=== PATIENT | male | born 1975 | race Caucasian/White ===

== ENCOUNTER 2020-06-16 14:24 | Outpatient (REF) | payer OTHER, SELFPAY | END 2020-06-16 14:25 | disposition home or self-care (01) | LOC: HO.HMGCLDS 14:24 | PROVIDERS: Visit Provider Internal Medicine | DX: Z20.828 Contact with and (suspected) exposure to other viral communicable diseases (principal) | CPT/HCPCS: C9803; U0003 ==

== ENCOUNTER 2022-05-15 09:22 | Outpatient (REF) | payer OTHER, SELFPAY ==
--- NOTE | ~2022-05-15 | US_ITS ---
EXAMINATION: US ABDOMEN COMPLETE CLINICAL INFORMATION: Elevated LFTs. COMPARISON: None TECHNIQUE: Real-time imaging of the abdominal viscera. FINDINGS: PANCREAS: Visualized portions unremarkable. ABDOMINAL AORTA: Visualized portions unremarkable. INFERIOR VENA CAVA: Visualized portions unremarkable. LIVER: Diffuse increased echotexture without focal abnormality. GALLBLADDER: Unremarkable. COMMON BILE DUCT: Normal in caliber measuring 0.3 cm in diameter. RIGHT KIDNEY: 13.1 cm. An upper pole anechoic cyst measures 1.1 cm. An adjacent echogenic focus measures 0.5 cm. No hydronephrosis. Color Doppler showed no abnormal vascular flow. LEFT KIDNEY: 12.8 cm. An interpolar anechoic cyst measures 0.7 cm. No hydronephrosis. Color Doppler showed no abnormal vascular. SPLEEN: 12.8 cm for an unremarkable. FREE FLUID: None. US/US abdomen complete IMPRESSION: 1. Small renal cysts bilaterally demonstrate benign features, follow-up. Nonobstructing right upper pole intrarenal calculus. 2. Hepatic steatosis.
== END 2022-05-15 09:23 | disposition home or self-care (01) ==
LOC: HO.US 09:22
PROVIDERS: Visit Provider Internal Medicine
DX: R10.11 Right upper quadrant pain (principal); R79.89 Other specified abnormal findings of blood chemistry
CPT/HCPCS: 76700

== ENCOUNTER → 2022-11-04 15:49 | Outpatient (BNVA) | payer OTHER, SELFPAY | PROVIDERS: PCP Internal Medicine; Visit Provider Nurse Practitioner Family | DX: Z13.89 Encounter for screening for other disorder (principal) ==

== ENCOUNTER 2023-01-17 09:35 | Day surgery (SDC) | payer OTHER, SELFPAY ==
--- NOTE | 2023-01-16 12:17 | HO.ANESPROP2 ---
Documented by User: Gay Pettit NP 01/16/23 12:18 HPI - Anesthesia Eval Consult details Narrative: 47yo M for Colonoscopy PMFSH Active Problems Active Problems: All Active Problems (Updated 08/26/22 @ 18:26 by Young Hugo MD) Colon cancer screening (Acute) Fatty liver (Acute) Renal calculus, right (Acute) Obesity (BMI 30-39.9) (Acute) Past Medical History Medical History Obesity (BMI 30-39.9) Renal calculus, right Family History Family History Father Heart disease Prostate cancer Paternal Uncle No problems noted. Maternal Uncle Substance abuse Surgical History Surgical History H/O: vasectomy Social History Social History Alcohol intake: current Patient Tobacco Use Status: Never used Tobacco Years Smoked: stopped 2008 Use of substances other than those prescribed or required for medical reasons: Yes Substance Use Type Other:: 2-3 x week Are you DNR?: No Advance Directives: No Advance Directives Information Provided: Yes Cognitive needs: No Hearing needs: No Vision needs: No Meds Allergies Allergy/AdvReac Type Severity Reaction Status Date / Time Penicillins [PENICILLINS] Allergy Unknown UNK Verified 01/14/23 15:35 Home Medications Medication Instructions Recorded Confirmed Last Taken Type No Known Home Meds 01/17/23 01/17/23 Unknown History Exam Exam Date and Time: January 16, 2023 121 Assessment and Plan Assessment Anesthesia Assessment: Chart Reviewed Documented by User: Joel Stein MD 01/17/23 11:45 PMFSH Past Medical History Medical History Obesity (BMI 30-39.9) Renal calculus, right Narrative: likely JUANITA. Family History Family History Father Heart disease Prostate cancer Paternal Uncle No problems noted. Maternal Uncle Substance abuse Family history of problems with anesthesia: No Surgical History Surgical History H/O: vasectomy History of Problems with Anesthesia: No Social History Social History Alcohol intake: current Patient Tobacco Use Status: Never used Tobacco Years Smoked: stopped 2008 Use of substances other than those prescribed or required for medical reasons: Yes Substance Use Type Other:: 2-3 x week Are you DNR?: No Advance Directives: No Advance Directives Information Provided: Yes Cognitive needs: No Hearing needs: No Vision needs: No Meds Allergies Allergy/AdvReac Type Severity Reaction Status Date / Time Penicillins [PENICILLINS] Allergy Unknown UNK Verified 01/14/23 15:35 Home Medications Medication Instructions Recorded Confirmed Last Taken Type No Known Home Meds 01/17/23 01/17/23 Unknown History Exam Airway Mallampati Class: II TM Dist: >3cm Neck ROM: Full Loose/Missing/Broken Teeth: No Heart: ok Lungs: ok Assessment and Plan Assessment Anesthesia Assessment: Anesthesia Plan Discussed Final Anesthetic Review Family History of Problems with Anesthesia: No History of Problems with Anesthesia: No NPO: Yes ASA Class: III Final Preanesthetic Review: No Changes in Pt Med Stat, Meds/Allgs Chart Reviewed, Consent Obtained/Reviewed and Anes Risks/Benef Reviewed Patient Risk: Intermediate Procedure Risk: Low Anesthetic Plan Anesthetic Plan: MAC: and Agree w/ Assess. and Plan Disposition: Standard PACU
[2023-01-17 09:50] VITALS: BMI 33.7
[2023-01-17 09:55] VITALS: BP 148/80; PULSE 51; RESP 18; TEMP 36.1; O2SAT 98
[2023-01-17] MEDS: Lactated Ringers 1,000 ML 100 ML IVCONT (10:14)
--- NOTE | 2023-01-17 11:22 | MHC.SHP ---
Pre-Procedural Eval Section A Date of Service: 01/17/23 The patient is an INPATIENT: No The History & Physical has been completed within 30 days and I have reviewed it.: No Section B Chief Complaint: screening Relevant Family History (Specify if Yes): No Relevant Social History: None Present Medications: see Short Stay Collaborative assessment Medical History: Significant History (Obesity (BMI 30-39.9) Renal calculus, right) History of Previous Operations: Relevant previous surgery/procedure and date(s) (hx of vasectomy) Allergies: Allergies Allergy/AdvReac Type Severity Reaction Status Date / Time Penicillins [PENICILLINS] Allergy Unknown UNK Verified 01/14/23 15:35 Review of Systems Sugical H&P ROS: Negative: Constitution, Cardiovascular, Respiratory and Gastrointestinal Exam Surgical H&P Exam: Normal: Heart, Normal: Lungs, Normal: Extremities and Normal: Abdomen Plan Diagnosis/Plan: Unchanged I have reviewed the history and physical and performed a pertinent physical examination on my patient. No changes have occurred unless specified. Time Spent With Patient Time: Total time managing care of this patient today ____ minutes.
--- NOTE | 2023-01-17 11:27 | P.OP_ITS ---
Operative Note Operative Note Date of Service: 01/17/23 Narrative: COLONOSCOPY TILL CECUM WITH SNARE POLYPECTOMY Pre-op diagnosis: Colon cancer screening Post-op diagnosis: Colon polyp, diverticulosis, hemorrhoids Endoscopist:? Fiona Echevarria MD Anesthesia:?MAC Consent: Indications for the procedure and potential complications of bleeding, perforation, reaction to medications and missed diagnosis were discussed with the patient and informed consent was obtained. Instrument: Olympus PCF H 190 L variable stiffness pediatric colonoscope Monitoring: Vital signs and clinical assessment, intermittent blood pressure monitoring, continuous EKG monitoring, Pulse oximetry and Carbon Dioxide monitoring were done throughout the procedure. Please see anesthesia flowsheet. Colon withdrawl time was 17 minutes. Procedure: The patient was placed in the left lateral decubitis position and pre-procedure medications were administered. After a digital rectal examination of the ano-rectum, the video colonoscope was inserted into the rectum and advanced through the colon to the cecum. The colonoscope was slowly withdrawn in a retrograde panoramic fashion and the colon mucosa was carefully examined including a retroflexed view of the rectum. Findings and interventions are described below. Procedure Difficulty: Without difficulty Findings: Terminal Ileum: Not evaluated Cecum: Normal Ascending Colon: Normal Transverse Colon: A 7-8 mm sessile polyp - removed with a cold snare. Descending Colon: Moderate diverticulosis Sigmoid Colon: Moderate diverticulosis Rectum: Normal Ano-rectum: Moderate internal hemorrhoids Colon preparation: Good Impression and Post Procedure Diagnosis: Colonoscopy Findings: One small polyps removed Moderate diverticulosis seen in the left colon Moderate hemorrhoids on retroflexed exam. Plan: Await pathology results Patient has an appointment on 01/31/23 in the GI [facility] with Heidy Miller FNP- [facility]. Repeat Colonoscopy interval based on path results - in 5 years if polyps are adenomatous and 10 years if polyps are hyperplastic. Above findings were reviewed with the patient and colon polyps and diverticulosis handouts were given in the discharge area
[2023-01-17 12:09] VITALS: BP 129/76; PULSE 68; RESP 16; TEMP 36.7; O2SAT 96
[2023-01-17 12:24] VITALS: BP 123/81; PULSE 52; RESP 16; TEMP 36.2; O2SAT 96
== END 2023-01-17 12:53 | disposition home or self-care (01) ==
PROVIDERS: PCP Internal Medicine; Visit Provider Internal Medicine Gastroenterology
PROC: 0DJD8ZZ Inspection of Lower Intestinal Tract, Via Natural or Artificial Opening Endoscopic (ICD-10-PCS; CPT 45378; principal; 2023-01-17 11:10)
DX: Z12.11 Encounter for screening for malignant neoplasm of colon (principal); D12.3 Benign neoplasm of transverse colon; K57.30 Diverticulosis of large intestine without perforation or abscess without bleeding; K64.8 Other hemorrhoids; N20.0 Calculus of kidney; E66.9 Obesity, unspecified; Z68.35 Body mass index [BMI] 35.0-35.9, adult; Z80.42 Family history of malignant neoplasm of prostate; Z98.52 Vasectomy status; Z88.0 Allergy status to penicillin
CPT/HCPCS: 45385; 88305; J3010

== ENCOUNTER 2023-02-10 14:50 | Outpatient (AMB) | payer OTHER, SELFPAY ==
[2023-02-10 14:58] VITALS: BP 152/93; PULSE 73; BMI 35.6
--- NOTE | 2023-02-10 14:58 | MHC.OFFVIS ---
Intake Vital Signs 02/10/23 14:58 Height 5 ft 6 in Weight 220 lb 7.396 oz BMI 35.6 BP 152/93 H Blood Pressure Location Lt brachial Position Sitting Pulse 73 Intake Visit Reasons: S/p colon-Wale Intake Note: Lee presents in office as a est.patient for a post-op for colon pt got it done 01.17.23 PT CC: pt reports having no concerns pt denies any other GI Issues Try Out Person Required: No Accompanied by: Self / Same As Patient Allergies Penicillins [PENICILLINS] Allergy (Unknown, Verified 02/10/23 14:58) UNK HPI S/p colon-Wale HPI Details LAST VISIT Colon cancer screening Patient denies any GI, cardiac or respiratory symptoms.? Denies any issues with anesthesia in the past.? Denies any history of sleep apnea.? No history infectious diseases in the past or present.? Not on any anticoagulation therapy.? No family or personal history of colon cancer or polyps.? Patient denies melena, hematochezia, unintentional weight loss or ribbon like stools.? Discussed at length the pre-procedure,? prep, diet & medications as well as what to expect prior, during and after the procedure.?? Stressed the importance of good bowel prep. ?Recommended the use of Vaseline or Calmoseptine OTC & baby wipes with bowel movements to promote comfort.? ?Patient verbalizes understanding and agrees to plan of care.? He was given the opportunity to ask questions and all questions answered.? We will see him after the procedure.? COLONOSCOPY Findings: Terminal Ileum: Not evaluated Cecum:? Normal Ascending Colon:? Normal Transverse Colon:? A 7-8 mm sessile polyp - removed with a cold snare. Descending Colon:? Moderate diverticulosis Sigmoid Colon:? Moderate diverticulosis Rectum:? Normal Ano-rectum:? Moderate internal hemorrhoids Colon preparation:? Good? Impression and Post Procedure Diagnosis: Colonoscopy Findings: One small polyps removed Moderate diverticulosis seen in the left colon Moderate hemorrhoids on retroflexed exam. Plan: Await pathology results Patient has an appointment on 01/31/23 in the GI Clinic with Heidy Miller FNP-BC. Repeat Colonoscopy interval based on path results - in 5 years if polyps are adenomatous and 10 years if polyps are hyperplastic. PATHOLOGY RESULTS: Diagnosis Colon, transverse, polyp:? Tubular adenoma; negative for high-grade dysplasia and carcinoma. TODAY'S VISIT: Patient is here today for follow-up and to discuss colonoscopy results. Patient denies any ill effects from the prep, anesthesia or procedure itself. Tubular adenoma found in transverse colon and patient was recommended to return for colorectal screening in 5 years. Patient denies any melena, hematochezia, unintentional weight loss or ribbon like stools. Moderate internal hemorrhoids as well as moderate diverticulosis seen in left colon. Patient denies any abdominal pain or discomfort. Denies any rectal bleed or pain. Patient denies any GI concerning symptoms. [facility] Medical History (Updated 03/05/23 @ 19:16 by Heidy Miller [facility]) Diverticulosis Obesity (BMI 30-39.9) Renal calculus, right Surgical History H/O: vasectomy Hx of colonoscopy Family History Father Heart disease Prostate cancer Paternal Uncle No problems noted. Maternal Uncle Substance abuse Social History Alcohol intake: current Patient Tobacco Use Status: Never used Tobacco Years Smoked: stopped 2008 Cognitive needs: No Hearing needs: No Vision needs: No Review of Systems Const Denies weight gain and Denies weight loss ENT Reports no additional complaints, Denies dysphagia and Denies odynophagia Card Reports no additional complaints Resp Reports no additional complaints GI Denies abdominal pain, Denies belching, Denies melena, Denies bloating, Denies change in bowel habits, Denies dysphagia, Denies excessive flatus, Denies dyspepsia, Denies heartburn, Denies diarrhea, Denies loose stools, Denies nausea, Denies odynophagia and Denies vomiting Reports no additional complaints Musc Reports no additional complaints Neuro Reports no additional complaints Psych Reports no additional complaints Endo Reports no additional complaints Physical Exam Vital Signs: Last Vital Signs Pulse 73 02/10/23 14:58 BP 152/93 H 02/10/23 14:58 BMI result Body Mass Index 35.6 Const General: healthy appearing, no acute distress and well developed Nutritional Appearance: obese Orientation/consciousness: patient oriented x3 HEENT Head: Yes normal to inspection, Yes normocephalic and Yes atraumatic Face and sinus: Yes normal facial exam Mouth: Normal oral and palatal mucosa present Throat: Yes posterior oropharynx normal, Yes tonsils normal and Yes uvula midline Eyes General: appearance normal, both eyes and all related structures Neck Neck: Yes normal visual inspection, Yes full ROM and Yes trachea midline Thyroid: Thyroid normal Resp Effort & Inspection: normal respiratory effort, able to speak in complete sentences, no tracheal deviation and symmetric chest movement Auscultation: clear to auscultation bilaterally Cardio Rate: regular rate Heart sounds: S1 normal heart sound present and S2 normal heart sound present GI Inspection: Yes normal to inspection, No distended and Yes obesity Palpation (GI): Soft to palpation, not firm, nontender and No hepatosplenomegaly present Auscultation: normal bowel sounds General: Yes no CVA tenderness Back/Spine/Pelvis Back: no CVA tenderness Skin General skin exam: elasticity normal, turgor normal and dry skin Neuro General: patient oriented x3 Psych Appearance: grossly normal Mental Status: mental status grossly normal Speech and movement: Normal speech and movement present Affect: normal affect Assessment & Plan Assessment & Plan (1) Tubular adenoma: Code(s): D36.9 - Benign neoplasm, unspecified site Plan: 1 tubular adenoma found in the transverse colon. Patient will return for colorectal screening in 5 years, sooner if clinically necessary. (2) Status post colonoscopy: Code(s): Z98.890 - Other specified postprocedural states (3) Diverticulosis: Code(s): K57.90 - Diverticulosis of intestine, part unspecified, without perforation or abscess without bleeding Plan: Moderate diverticulosis to left colon. Patient was encouraged to drink plenty fluids, take probiotic and increase fiber intake. List of food high in fiber given to patient. Information about diverticulosis and what type of food he should be consuming given to patient (4) Internal hemorrhoids without complication: Code(s): K64.8 - Other hemorrhoids Plan: Internal hemorrhoids without complication found. Patient denies any rectal pain or discomfort. Patient can increase fiber intake. He will call us if he will have any issues. He will follow-up with us on as-needed basis. He is agreeable to this plan and verbalizes understanding of instructions. He was given the opportunity to ask questions and all questions answered. Thank you for allowing me to participate in his care Coding Level of Care Code Est Pt Level 4 (47891) Diagnoses Tubular adenoma D36.9 Status post colonoscopy Z98.890 Diverticulosis K57.90 Internal hemorrhoids without complication K64.8 Time Spent (min) 35 Comment 20 minutes spent with patient and additional 15 minutes spent reviewing his records
== END 2023-02-10 15:21 | disposition home or self-care (01) ==
PROVIDERS: PCP Internal Medicine; Visit Provider Nurse Practitioner Family
DX: D36.9 Benign neoplasm, unspecified site (principal); Z98.890 Other specified postprocedural states; K57.90 Diverticulosis of intestine, part unspecified, without perforation or abscess without bleeding; K64.8 Other hemorrhoids
CPT/HCPCS: 99214

== ENCOUNTER → 2023-02-10 14:50 | Outpatient (BNVA) | payer OTHER, SELFPAY | PROVIDERS: PCP Internal Medicine; Visit Provider Nurse Practitioner Family ==

== ENCOUNTER 2025-01-10 15:39 | Outpatient (AMB) | payer OTHER, SELFPAY ==
[2025-01-10 15:45] VITALS: BP 148/98; PULSE 72; TEMP 36; O2SAT 97; BMI 35.7
--- NOTE | 2025-01-10 15:45 | MHC.PC.OV ---
Vital Signs 01/10/25 15:45 Height 5 ft 6 in Weight 221 lb 4 oz BMI 35.7 BP 148/98 H Blood Pressure Location Lt brachial Position Sitting Pulse 72 Pulse Source Pulse Oximeter Temp 96.8 F Temp Source Temporal Artery Scan Pulse Oximetry (%) 97 Oxygen Delivery Method Room Air Intake Visit Reasons: elevated BP and chalazion Compressor Battery Pellets Required: No Accompanied by: Self / Same As Patient Allergies Penicillins [PENICILLINS] Allergy (Unknown, Verified 01/10/25 15:50) UNK Medication List - Last Reviewed 01/10/25 by RAJAN Louie No Known Home Meds Tobacco use date assessed: 01/10/25 Dental Screening Dental Screen Date: 01/10/25 Did you have a dental visit in the last 12 months?: Yes Did you have a dental problem in the last 6 months where you did not have access to dental care?: No Was dental information given to patient?: Patient has dentist HPI elevated BP and chalazion HPI Details The patient is a 49-year-old male presenting with concerns about elevated blood pressure readings. He reports that his blood pressure readings at home have been elevated, reaching into the 140s and 150s systolic, despite feeling asymptomatic. The patient has a family history of hypertension, as his mother is affected by the condition. The patient uses a home blood pressure monitor, which he purchased to monitor his 's health, and has noted elevated readings during casual checks. He acknowledges a high caffeine intake, consuming up to 44 ounces of coffee daily, which may contribute to his elevated blood pressure. The patient is generally healthy, does not frequently visit doctors, and prefers to manage minor ailments without medication. The patient also reports a chalazion, which he has been managing with warm compresses, leading to improvement. He describes the chalazion as initially presenting as a sty, which evolved into a chalazion over a month, and has been using warm compresses effectively for treatment. [facility] Medical History (Updated 01/10/25 @ 15:59 by Rudy Quevedo PA-C) Diverticulosis Obesity (BMI 30-39.9) Renal calculus, right Surgical History Hx of colonoscopy H/O: vasectomy Family History Father Heart disease Prostate cancer Paternal Uncle No problems noted. Maternal Uncle Substance abuse Social History Housing: House Alcohol intake: current Patient Tobacco Use Status: Never used Tobacco Years Smoked: stopped 2008 e-Cigarette/Vaping Use: Never Used service: No Current occupational status: employed Cognitive needs: No Hearing needs: No Vision needs: No Questionnaire PHQ-9 Over the last 2 weeks, how often have you been bothered by any of the following problems? 1. Little interest or pleasure in doing things: not at all 2. Feeling down, depressed, or hopeless: not at all 3. Trouble falling or staying asleep, or sleeping too much: not at all 4. Feeling tired or having little energy: not at all 5. Poor appetite or overeating: not at all 6. Feeling bad about yourself - or that you are a failure or have let yourself or your family down: not at all 7. Trouble concentrating on things, such as reading the newspaper or watching television: not at all 8. Moving or speaking so slowly that other people could have noticed. Or the opposite - being so fidgety or restless that you have been moving around a lot more than usual: not at all 9. Thoughts that you would be better off or of hurting yourself in some way: not at all Total score: 0 Depression Screening Interpretation: Negative Depression Screening Done: Yes 58775 - PHQ-9 Billing: Yes Source: Developed by Drs. Lee Farrar, June Sandra, Nahid Caruso and colleagues, with an educational rere from [employer]. Thrive Questionnaire Date Thrive assessed: 01/10/25 I am a: Patient What is your living situation today?: I have a steady place to live Within the past 12 months, did the food you bought not last and you didn't have the money to get more?: Never true Within the past 12 months, did you worry whether your food would run out before you got money to buy more?: Never true Do you have trouble paying for medicines?: No Do you have trouble getting transportation to medical appointments?: No Do you have trouble paying your heating and electricity bill?: No Do you have trouble taking care of your child, family member or friend?: No Do you have trouble with day-to-day activities such as bathing, preparing meals, shopping, managing finances, etc.?: No Are you currently unemployed and looking for a job?: No Are you interested in more education?: No Please select the resources that you would like help with: None Currently or been in a relationship where the following occur: No concerns reported THRIVE Score: 0 AUDIT C Alcohol Use Questionnaire (AUDIT-C) 1. How often do you have a drink containing alcohol?: Monthly or less 2. How many drinks containing alcohol do you have on a typical day when you are drinking?: 1 or 2 3. How often do you have six or more drinks on one occasion?: Never Total Score: 1 FORD-7 AMB Questionnaire FORD-7 Date FORD - 7 assessed: 01/10/25 Feeling nervous, anxious, or on edge: 0 = Not at all Not being able to stop or control worryin = Not at all Worrying too much about different things: 0 = Not at all Trouble relaxin = Not at all Being so restless that it is hard to sit still: 0 = Not at all Becoming easily annoyed or irritable: 0 = Not at all Feeling afraid as if something awful might happen: 0 = Not at all Total FORD-7 score (0-4 normal; 5-9 mild; 10-14 moderate; 15-21 severe): 0 Source: Developed by Drs. Lee Farrar, June Sandra, Nahid Caruso and colleagues, with an educational rere from [employer]. FORD-7 Assessment Billing FORD-7 Assessment Tool: FORD-7 Assessment 27933 Review of Systems Const Denies headache(s) Eyes Denies loss of vision ENT Denies vertigo, Denies dizziness, Denies headache(s) and Denies sore throat Card Denies chest pain, Denies leg edema and Denies lightheadedness Resp Denies cough, Denies hemoptysis and Denies wheezing GI Denies abdominal pain, Denies melena, Denies constipation, Denies diarrhea and Denies vomiting Denies dysuria, Denies urinary frequency and Denies urinary urgency Musc Denies arthralgias, Denies joint swelling, Denies numbness and Denies tingling Neuro Denies Abnormal speech present, Denies behavioral changes, Denies vertigo, Denies dizziness, Denies headache(s), Denies loss of vision, Denies memory loss, Denies numbness and Denies tingling Psych Denies anxiety, Denies behavioral changes, Denies depression, Denies memory loss and Denies panic attacks Ankit/Lymph Denies easy bleeding and Denies easy bruising Aller/Immun Denies wheezing Physical exam (Primary Care) Vital Signs: Last Vital Signs Temp 96.8 F 01/10/25 15:45 Pulse 72 01/10/25 15:45 BP 148/98 H 01/10/25 15:45 Pulse Ox 97 01/10/25 15:45 Oxygen Delivery Method Room Air 01/10/25 15:45 BMI result Body Mass Index 35.7 Tobacco/Smoking Status: Tobacco use Status Tobacco use date assessed 01/10/25 01/10/25 15:51 Patient Tobacco Use Status Never used Tobacco 01/10/25 15:46 e-Cigarette/Vaping Use Never Used 01/10/25 15:51 PHQ-9: PHQ-9 Score PHQ-9: Total score 0 01/10/25 15:50 Depression Screening Interpretation: Negative Thrive Assessment: Date of Thrive Assessment Date Thrive assessed 01/10/25 01/10/25 15:50 Currently or been in a relationship where the following occur: No concerns reported Const General: healthy appearing, no acute distress, alert and awake Nutritional Appearance: well nourished Orientation/consciousness: oriented to person, oriented to place and oriented to time HENMT Ears: TM's normal bilaterally General nose exam: Normal nasal mucous membranes and turbinates present Eyes Conjunctivae: conjunctivae normal Sclerae: sclerae normal Pupils: Equal, round and reactive pupils present Neck Neck: Yes no lymphadenopathy and Yes no JVD Thyroid: Thyroid normal Carotids: no bruits Resp Effort & Inspection: normal respiratory effort and not tachypneic Auscultation: no crackles, no rales, no rhonchi and no wheezes Cardio Rate: regular rate Rhythm: regular rhythm Heart sounds: no murmurs and normal S1 and S2 GI Palpation (GI): Soft to palpation, nontender, no hepatomegaly and no splenomegaly Auscultation: normal bowel sounds Skin General skin exam: no rashes or lesions noted and dry skin Neuro General: oriented to person, oriented to place and oriented to time Cranial nerves: Yes Equal, round and reactive pupils present Speech: No Abnormal speech present Gait exam (Neuro): Normal gait present Motor exam (neuro): no tremor noted Extrem Right upper extremity: full ROM Left upper extremity: full ROM Right lower extremity: full ROM; no edema Left lower extremity: full ROM; no edema Psych Mental Status: mental status grossly normal Speech and movement: Normal speech and movement present Affect: normal affect Attitude: cooperative Thought process: Normal thought process present Coding Level of Care Code Est Pt Level 3 (02052) Diagnoses Primary hypertension I10 Hypertension type: primary hypertension Additional Codes FORD-7 Assessment Billing - FORD-7 Assessment Tool: FORD-7 Assessment 88693 ([id number]) PHQ-9 - 34294 - PHQ-9 Billing: Yes ([id number]) Assessment & Plan Assessment & Plan (1) HTN (hypertension): Code(s): I10 - Essential (primary) hypertension Category: Medical Qualifiers: Hypertension type: primary hypertension Qualified Code(s): I10 - Essential (primary) hypertension Plan: The patient has been experiencing elevated blood pressure readings at home, with systolic values reaching the 140s and 150s. A plan was discussed to reduce caffeine intake, monitor blood pressure regularly, and consider lifestyle modifications such as reducing salt intake. Follow-up in six to eight weeks was recommended to reassess blood pressure and consider medication if necessary. Orders: Orders Comprehensive [place]. Panel Fast 01/10/25 I10 - Essential (primary) hypertension Complete Blood Count no Diff 01/10/25 I10 - Essential (primary) hypertension Microalbumin, Random (w Creat) 01/10/25 I10 - Essential (primary) hypertension
== END 2025-01-10 16:25 | disposition home or self-care (01) ==
LOC: HO.HMCH 15:39
PROVIDERS: PCP Internal Medicine; Visit Provider Physician Assistant
DX: I10 Essential (primary) hypertension (principal)

== ENCOUNTER → 2025-01-10 15:39 | Outpatient (BNVA) | payer OTHER, SELFPAY | PROVIDERS: PCP Internal Medicine; Visit Provider Physician Assistant | DX: I10 Essential (primary) hypertension (principal); H00.19 Chalazion unspecified eye, unspecified eyelid | CPT/HCPCS: 96127 ==

== ENCOUNTER 2025-02-19 09:53 | Outpatient (REF) | payer OTHER, SELFPAY ==
[2025-02-19 11:44] LABS: Hematocrit 48.0 % (42.0-52.0); Hemoglobin 16.8 g/dl (14.0-18.0); Mean Corpuscular HGB Conc 35.0 g/dl (31.0-36.0); Mean Corpuscular Hemoglobin 30.1 pg (27.0-33.0); Mean Corpuscular Volume 86.0 fL (80.0-98.0); NRBC Abs Auto 0.000 X10*3/uL (0.0-0.012); NRBC Pct Auto 0.0 /100WBC (0.0-0.2); Platelet Count 240 X10*3/uL (160-400); Red Blood Count 5.58 X10*6/uL (4.60-5.80); White Blood Count 4.5 X10*3/uL (4.8-10.8)
[2025-02-19 12:09] LABS: Alanine Aminotransferase 71 U/L (0-40); Albumin Level 4.9 g/dL (3.5-5.0); Alkaline Phosphatase 73 U/L (39-117); Anion Gap 13 (12-20); Aspartate Amino Transferase 31 U/L (5-37); Blood Urea Nitrogen 15 mg/dL (9-16); Calcium 9.4 mg/dL (8.4-10.2); Carbon Dioxide 24 mmol/L (22-29); Chloride 107 mmol/L (96-108); Estimated Glomerular Filt Rate > 60; Potassium 3.9 mmol/L (3.3-5.1); Sodium 140 mmol/L (135-145); Total Protein 7.5 g/dL (6.5-8.0)
[2025-02-19 12:31] LABS: Microalbum/Creatinine Ratio Ur 6.9 ug/mg cr (<30)
== END 2025-02-19 09:54 | disposition home or self-care (01) ==
LOC: HO.LAB 09:53
PROVIDERS: PCP Physician Assistant; Visit Provider Physician Assistant
DX: I10 Essential (primary) hypertension (principal)
CPT/HCPCS: 36415; 80053; 82043; 82570; 85027

== ENCOUNTER 2025-06-14 12:56 | Outpatient (AMB) | payer OTHER, SELFPAY ==
--- NOTE | 2025-06-14 13:01 | MHC.PC.OV ---
Vital Signs 06/14/25 13:02 06/14/25 13:21 Height 5 ft 6 in Weight 221 lb 2 oz BMI 35.7 BP 148/92 H 138/90 H Blood Pressure Location Lt brachial Lt brachial Position Sitting Sitting Pulse 66 Pulse Source Pulse Oximeter Temp 97.1 F Temp Source Temporal Artery Scan Pulse Oximetry (%) 97 Oxygen Delivery Method Room Air Intake Visit Reasons: Annual PE Concrete Float Maker Required: No Accompanied by: Self / Same As Patient Allergies Penicillins (PENICILLINS) Allergy (Unknown, Verified 06/14/25 13:09) UNK Medication List - Last Reconciled 06/14/25 by Young Hugo MD No Known Home Meds Tobacco use date assessed: 06/14/25 Dental Screening Dental Screen Date: 06/14/25 Did you have a dental visit in the last 12 months?: Yes Did you have a dental problem in the last 6 months where you did not have access to dental care?: No Was dental information given to patient?: Patient has dentist HPI HPI Comments History of Present Illness Details History of Present Illness The patient is a 49-year-old male presenting for a follow-up visit and management of elevated blood pressure. He sometimes checks his blood pressure at home and notes that readings have shown more abnormal than normal values. A reading during the visit was 138/90 mmHg. His family history is significant for a father with heart problems, including open-heart surgery, and prostate cancer, and a mother with high blood pressure. Past medical history is notable for elevated liver function tests on blood work from January, which led to an ultrasound of the liver. The ultrasound revealed hepatic steatosis and an incidental 5 mm right-sided kidney stone. He also has a history of diverticulosis and hemorrhoids, which bleed with hard stools or after eating spicy food. The patient is allergic to penicillin. He is not currently taking any medications but sometimes uses cannabis gummies. His most recent blood work was in January, which showed normal electrolytes and kidney function but elevated liver enzymes; no cholesterol panel was done. He is up to date on his colon cancer screening. [facility] For health screening, fasting blood work was ordered to check cholesterol and thyroid levels, as no recent results are on file. Vaccination status was reviewed; he is up to date on his flu and COVID-19 vaccines, but the timing of his last tetanus shot is uncertain. Follow-up is scheduled in three months to reassess his blood pressure and review lab results. Social History - Alcohol Use: Drinks about four to six beers once a week, typically on a weekend day. - He acknowledges this is a high amount and is trying to reduce his intake. - Tobacco Use: Denies smoking cigarettes. - Recreational Substance Use: Reports occasional use of cannabis gummies but denies smoking cannabis. - Diet: Reports trying to eat healthy, cooks at home frequently, and eats a lot of chicken and salads while avoiding extra salt. - He avoids spicy foods due to hemorrhoids. - He drinks coffee and was advised to limit it to one to two cups per day. - Employment: Works in the [employer] department at [employer]. - Family: Has two children who are active in sports. Results - Previous results discussed: - Labs (January): Electrolytes and kidney function were normal. - Liver enzymes were elevated. - Imaging (prior): Ultrasound of the liver showed hepatic steatosis and a 5 mm right kidney stone. REPLACED BY [facility] Medical History Annual physical exam Diverticulosis Obesity (BMI 30-39.9) Renal calculus, right Surgical History Hx of colonoscopy H/O: vasectomy Family History Father Heart disease Prostate cancer Paternal Uncle No problems noted. Maternal Uncle Substance abuse Social History (Updated 06/14/25 @ 13:25 by Young Hugo MD) Housing: House Alcohol intake: current Comment: once a week 4-6 beers Patient Tobacco Use Status: Never used Tobacco Years Smoked: stopped 2008 e-Cigarette/Vaping Use: Never Used service: No Current occupational status: employed Cognitive needs: No Hearing needs: No Vision needs: No Questionnaire PHQ-9 Over the last 2 weeks, how often have you been bothered by any of the following problems? 1. Little interest or pleasure in doing things: not at all 2. Feeling down, depressed, or hopeless: not at all 3. Trouble falling or staying asleep, or sleeping too much: not at all 4. Feeling tired or having little energy: not at all 5. Poor appetite or overeating: not at all 6. Feeling bad about yourself - or that you are a failure or have let yourself or your family down: not at all 7. Trouble concentrating on things, such as reading the newspaper or watching television: not at all 8. Moving or speaking so slowly that other people could have noticed. Or the opposite - being so fidgety or restless that you have been moving around a lot more than usual: not at all 9. Thoughts that you would be better off or of hurting yourself in some way: not at all Total score: 0 Depression Screening Interpretation: Negative Depression Screening Done: Yes Source: Developed by Drs. Lee Farrar, June Sanrda, Nahid Caruso and colleagues, with an educational rere from [employer]. Thrive Questionnaire Date Thrive assessed: 01/10/25 I am a: Patient What is your living situation today?: I have a steady place to live Within the past 12 months, did the food you bought not last and you didn't have the money to get more?: Never true Within the past 12 months, did you worry whether your food would run out before you got money to buy more?: Never true Do you have trouble paying for medicines?: No Do you have trouble getting transportation to medical appointments?: No Do you have trouble paying your heating and electricity bill?: No Do you have trouble taking care of your child, family member or friend?: No Do you have trouble with day-to-day activities such as bathing, preparing meals, shopping, managing finances, etc.?: No Are you currently unemployed and looking for a job?: No Are you interested in more education?: No Please select the resources that you would like help with: None Currently or been in a relationship where the following occur: No concerns reported THRIVE Score: 0 AUDIT C Alcohol Use Questionnaire (AUDIT-C) 1. How often do you have a drink containing alcohol?: 2-4 times a month 2. How many drinks containing alcohol do you have on a typical day when you are drinking?: 1 or 2 3. How often do you have six or more drinks on one occasion?: Never Total Score: 2 FORD-7 AMB Questionnaire FORD-7 Date FORD - 7 assessed: 01/10/25 Feeling nervous, anxious, or on edge: 0 = Not at all Not being able to stop or control worryin = Not at all Worrying too much about different things: 0 = Not at all Trouble relaxin = Not at all Being so restless that it is hard to sit still: 0 = Not at all Becoming easily annoyed or irritable: 0 = Not at all Feeling afraid as if something awful might happen: 0 = Not at all Total FORD-7 score (0-4 normal; 5-9 mild; 10-14 moderate; 15-21 severe): 0 Source: Developed by Drs. Lee Farrar, June Sandra, Nahid Caruso and colleagues, with an educational rere from [employer]. Review of Systems Narrative Review of Systems - Constitutional: Denies fever. - HEENT: Reports blurry close-up vision requiring reading glasses. - Denies problems with distance vision or issues with bright lights at night. - Reports his states his hearing is not good, but he denies hearing problems. - Denies dysphagia or coughing while eating. - Cardiovascular: Denies chest pain, heaviness, or discomfort. - Denies waking up short of breath. - Gastrointestinal: Reports having hemorrhoids that sometimes bleed with hard stools or after eating spicy food. - Reports good bowel movements. - Denies heartburn, constipation, nausea, or vomiting. - He mentions having diverticulosis, which he believes causes occasional abdominal pain. - Genitourinary: Denies urinary problems. - Denies nocturia, stating he hardly ever wakes up to urinate. - Neurological: Denies syncope or dizziness. - Musculoskeletal: Reports pain in the back of his knees when he is dehydrated. Const Denies poor appetite and Denies weakness Eyes Denies no additional complaints ENT Reports Normal hearing present, Denies dizziness, Denies nasal congestion, Denies tinnitus and Denies sore throat Card Denies chest pain, Denies syncope, Denies rapid heart rate and Denies dyspnea Resp Denies cough and Denies dyspnea GI Denies change in stool character, Reports constipation, Denies diarrhea, Denies nausea and Denies vomiting Denies dysuria and Denies urinary frequency Neuro Reports Normal hearing present, Denies confusion, Denies dizziness, Denies syncope and Denies weakness Psych Denies confusion Physical exam (Primary Care) Vital Signs: Last Vital Signs Temp 97.1 F 06/14/25 13:02 Pulse 66 06/14/25 13:02 BP 138/90 H 06/14/25 13:21 Pulse Ox 97 06/14/25 13:02 Oxygen Delivery Method Room Air 06/14/25 13:02 BMI result Body Mass Index 35.7 Tobacco/Smoking Status: Tobacco use Status Tobacco use date assessed 06/14/25 06/14/25 13:09 Patient Tobacco Use Status Never used Tobacco 06/14/25 13:25 e-Cigarette/Vaping Use Never Used 06/14/25 13:25 PHQ-9: PHQ-9 Score PHQ-9: Total score 0 06/14/25 13:09 Depression Screening Interpretation: Negative Thrive Assessment: Date of Thrive Assessment Date Thrive assessed 01/10/25 06/14/25 13:04 Currently or been in a relationship where the following occur: No concerns reported Narrative Physical Exam General: Cooperative, healthy appearing, comfortable, no acute distress and well developed Orientation: Patient oriented x3 Limitations: No limitations Head: Normal to inspection Ears: Hearing grossly normal bilaterally, although patient reports says hearing is not good Nose: Normal external nose present Face and sinus: Normal facial exam Eyes: Appearance normal, both eyes and all related structures; patient reports needing cheaters for close vision Neck: Normal visual inspection and Yes full ROM Respiratory: Normal respiratory effort and able to speak in complete sentences. Clear to auscultation bilaterally Cardiovascular: Regular rate and rhythm. Normal S1 and S2 GI: Normal to inspection. Soft to palpation and nontender; patient reports occasional bleeding hemorrhoids if stool is hard Skin: No rashes or lesions noted Neuro: Patient oriented x3 Extremities: Normal to inspection Const General: No confusion Orientation/consciousness: No confusion [facility] Head: Yes normocephalic Ears: external ears normal and TM's normal bilaterally Face and sinus: Yes normal facial exam Mouth: moist mucous membranes Throat: Yes tonsils normal Eyes Conjunctivae: conjunctivae normal Pupils: Equal, round and reactive pupils present and Pupil accommodation reflex normal Direct Ophthalmoscopy: normal light reflex Neck Neck: No lymphadenopathy Thyroid: Thyroid normal Chest Chest palpation & inspection: normal inspection of the chest Resp Effort & Inspection: normal respiratory effort and no audible wheezes Auscultation: clear to auscultation bilaterally, no crackles, no wheezes and lung sounds not diminished Cardio Rate: regular rate Rhythm: regular rhythm Peripheral pulses: radial pulses present and dorsalis pedis present GI Palpation (GI): no masses Auscultation: normal bowel sounds and normoactive bowel sounds Rectal Exam - Male: Yes deferred Skin General skin exam: no rashes or lesions noted Rashes: no rashes Neuro General: No confusion Cranial nerves: Yes Equal, round and reactive pupils present and Yes Normal hearing present Cognition (Neuro): normal cognition Gait exam (Neuro): Normal gait present Motor exam (neuro): 5/5 motor strength present throughout Deep tendon reflexes (DTR's): Right brachioradialis reflex intensity grade: 2+, Left brachioradialis reflex intensity grade: 2+, Right patellar reflex intensity grade: 2+ and Left patellar reflex intensity grade: 2+ Extrem General: No edema Coding Level of Care Code Est Pt Prev Care 40-64y([id number]) Diagnoses Annual physical exam Z00.00 Obesity (BMI 30-39.9) E66.9 Fatty liver K76.0 Renal calculus, right N20.0 Primary hypertension I10 Hypertension type: primary hypertension Assessment & Plan Assessment & Plan (1) Annual physical exam: Code(s): Z00.00 - Encounter for general adult medical examination without abnormal findings Category: Medical Plan: Patient is advised to eat healthy, keep well hydrated, keep active and have adequate sleep. (2) Obesity (BMI 30-39.9): Code(s): E66.9 - Obesity, unspecified Category: Medical Plan: Diet and exercise (3) Fatty liver: Code(s): K76.0 - Fatty (change of) liver, not elsewhere classified Category: Medical Plan: Low-fat diet and exercise (4) Renal calculus, right: Comment: 2015April 2022 Small renal cysts bilaterally demonstrate benign features, follow-up. Nonobstructing right upper pole intrarenal calculus. 2. Hepatic steatosis. Code(s): N20.0 - Calculus of kidney Category: Medical Plan: Keep well hydrated (5) HTN (hypertension): Code(s): I10 - Essential (primary) hypertension Category: Medical Qualifiers: Hypertension type: primary hypertension Qualified Code(s): I10 - Essential (primary) hypertension Plan Plan Patient was informed and verbally consented to the use of an ambient scribe for clinic note documentation during this visit. 1. Hypertension The patient's blood pressure is elevated, with a reading of 138/90 mmHg today and a history of more abnormal than normal readings at home. Considering the risks of stroke and heart attack associated with uncontrolled hypertension, and his family history of heart disease and high blood pressure, initiating treatment is warranted. A prescription for a low-dose, once-daily blood pressure medication will be sent to the pharmacy. He is advised to monitor his blood pressure at home two to three times per week after resting for 3-5 minutes and to keep a log. Lifestyle modifications, including weight loss, reduced salt intake, and decreased alcohol consumption, were also discussed. 2. Obesity The patient's BMI is 35 kg/m??, which is in the obese range. Weight is a contributing factor to his elevated blood pressure. A weight loss goal of getting below 200 pounds was established. It was discussed that successful weight loss could potentially lead to the discontinuation of blood pressure medication in the future. 3. Hepatic Steatosis The patient has a history of hepatic steatosis, confirmed on a prior ultrasound, and elevated liver enzymes. His reported alcohol consumption of 4-6 beers in one sitting is considered high and is a likely contributor. Counseling was provided on the hepatotoxic effects of alcohol, and the patient agreed to try to reduce his intake. 4. Nephrolithiasis The patient has an incidental finding of a 5 mm right kidney stone. As he is currently asymptomatic, the plan is to monitor. He was educated on the importance of maintaining adequate hydration to help flush the stone and prevent further issues, advising him to monitor his urine color. He was instructed to seek care if he develops significant flank pain or visible blood in his urine. Discussion Notes I discussed my concerns regarding the patient's elevated blood pressure readings, noting the trend of more abnormal than normal measurements. I explained that while the ideal blood pressure is 120/80 mmHg, his readings are approaching a level (140/90 mmHg) that is concerning, especially given the increased risk of stroke and heart attacks. We reviewed his family history of heart disease and hypertension, which further underscores the need for management. The patient initially expressed reluctance to take medication but was agreeable after we discussed the risks versus benefits. I advised him that we would start a low-dose medication and that lifestyle modifications, particularly weight loss, could potentially allow for discontinuation of the medication in the future. We also discussed the incidental finding of a 5 mm kidney stone, and I reassured him that since he is asymptomatic, we can monitor it for now but emphasized the importance of hydration. I ordered fasting blood work to establish a baseline for his cholesterol. I recommended a follow-up appointment in three months to review his progress but advised him to contact me via the portal sooner if he feels unwell on the new medication or has other concerns. Patient Instructions - Take the new blood pressure medication once a day as prescribed. - Check your blood pressure at home 2-3 times per week. - Before checking, sit and rest for 3-5 minutes, and write down the numbers. - Go to the lab for fasting blood work to check your cholesterol and thyroid. - You must not eat for 8 hours before the test; sips of water are okay. - Work on lifestyle changes, including weight loss with a goal of getting below 200 pounds, reducing alcohol consumption, and trying to eat a healthy diet. - Make sure to drink plenty of water to stay hydrated, which is important for your kidney stone. - Schedule a follow-up appointment in three months. - If you feel unwell from the new medication or have any other concerns before your next appointment, please contact the office through the patient portal. Orders: Orders Comprehensive Met. Panel Today K76.0 - Fatty (change of) liver, not elsewhere classified Hemoglobin A1c Today K76.0 - Fatty (change of) liver, not elsewhere classified Lipid Panel Today E78.00 - Pure hypercholesterolemia, unspecified, K76.0 - Fatty (change of) liver, not elsewhere classified Thyroid Stimulating Hormone Today K76.0 - Fatty (change of) liver, not elsewhere classified Complete Blood Count Auto Diff Today K76.0 - Fatty (change of) liver, not elsewhere classified Free T4 (Free Thyroxine) Today K76.0 - Fatty (change of) liver, not elsewhere classified Vitamin B12 and Folate Today K76.0 - Fatty (change of) liver, not elsewhere classified Medications: New lisinopril 5 mg PO DAILY 30 tabs 3RF I10 - Essential (primary) hypertension
[2025-06-14 13:02] VITALS: BP 148/92; PULSE 66; TEMP 36.2; O2SAT 97; BMI 35.7
[2025-06-14 13:21] VITALS: BP 138/90
== END 2025-06-14 13:49 | disposition home or self-care (01) ==
LOC: HO.HMCH 12:57
PROVIDERS: PCP Internal Medicine; Visit Provider Internal Medicine
DX: Z00.00 Encounter for general adult medical examination without abnormal findings (principal); E66.9 Obesity, unspecified; K76.0 Fatty (change of) liver, not elsewhere classified; N20.0 Calculus of kidney; I10 Essential (primary) hypertension; Z68.35 Body mass index [BMI] 35.0-35.9, adult